=== PATIENT | female | born 1945 | race Caucasian/White ===

== ENCOUNTER 2017-01-31 11:53 | Emergency (ER) | payer MEDICARE, OTHER ==
[~2017-01-31] VITALS: Ht 160 cm; Wt 55.5 kg
[~2017-01-31 11:53] MED LIST: CALCIUM CARBON650 M2 PO; DUO-KAPS1 CAP PO; FISH OIL 1000MG1 CAP PO; OYSTER CALCIUM500 M1 PO; RITE AID ASPIRI81 M1 PO; ST. JOSEPH81 M2 PO; ZOCOR20 MG PO
[2017-01-31] MEDS ORDERED: SIMVASTATIN5 M1 PO (12:03)
[2017-01-31] MEDS ORDERED: GLUCOSAMINE1000 MG PO (12:04)
[2017-01-31 12:43] VITALS: BP 119/78
== END 2017-01-31 12:43 | disposition home or self-care (01) ==
LOC: ED 11:53
DX: S80.811A Abrasion, right lower leg, initial encounter (principal); X58.XXXA Exposure to other specified factors, initial encounter; Y92.009 Unspecified place in unspecified non-institutional (private) residence as the place of occurrence of the external cause; E78.5 Hyperlipidemia, unspecified

== ENCOUNTER → 2017-02-05 | Outpatient (CLI) | payer MEDICARE, OTHER ==
[2017-01-31 12:43] VITALS: BP 119/78
[~2017-02-05] MED LIST changes: +GLUCOSAMINE1000 MG PO; +SIMVASTATIN5 M1 PO
== END ==
LOC: LAB 09:58
DX: Z00.00 Encounter for general adult medical examination without abnormal findings (principal); Z13.1 Encounter for screening for diabetes mellitus; Z12.12 Encounter for screening for malignant neoplasm of rectum; E78.00 Pure hypercholesterolemia, unspecified; E03.9 Hypothyroidism, unspecified; M21.612 Bunion of left foot; M25.579 Pain in unspecified ankle and joints of unspecified foot

== ENCOUNTER → 2017-03-30 | Outpatient (CLI) | payer MEDICARE, OTHER | LOC: LAB 10:07 | DX: M79.641 Pain in right hand (principal); M79.672 Pain in left foot ==

== ENCOUNTER → 2017-04-23 | Outpatient (CLI) | payer MEDICARE, OTHER ==
[2017-04-23 13:32] LABS: URINE APPEARANCE HAZY; URINE COLOR YELLOW; URINE UROBILINOGEN 1 mg/dL (NORMAL)
== END ==
LOC: LAB 12:52
PROVIDERS: Family Medicine
DX: N39.0 Urinary tract infection, site not specified (principal)

== ENCOUNTER → 2017-05-14 | Outpatient (CLI) | payer MEDICARE, OTHER ==
[2017-05-14 08:28] LABS: PH-URINE 6.5 (5.0 - 8.0); URINE APPEARANCE CLOUDY; URINE BILIRUBIN NEGATIVE (NEGATIVE); URINE BLOOD 50 ery/uL (NEGATIVE); URINE COLOR YELLOW; URINE GLUCOSE NEGATIVE (NEGATIVE); URINE KETONE NEGATIVE (NEGATIVE); URINE LEUKOCYTE ESTERASE 2+ (NEGATIVE); URINE MUCUS PRESENT (NOT PRESENT); URINE NITRATE NEGATIVE (NEGATIVE); URINE PROTEIN(semi-quant) TRACE mg/dL (NEGATIVE); URINE UROBILINOGEN NORMAL (NORMAL); URINE WBC >50 /hpf (0-3)
== END ==
LOC: LAB 07:47
PROVIDERS: Family Medicine
DX: N30.00 Acute cystitis without hematuria (principal)

== ENCOUNTER → 2017-05-24 | Outpatient (CLI) | payer MEDICARE, OTHER ==
[2017-05-24 11:13] LABS: URINE APPEARANCE CLEAR; URINE BILIRUBIN NEGATIVE (NEGATIVE); URINE BLOOD NEGATIVE (NEGATIVE); URINE COLOR YELLOW; URINE GLUCOSE NEGATIVE (NEGATIVE); URINE KETONE NEGATIVE (NEGATIVE); URINE LEUKOCYTE ESTERASE NEGATIVE (NEGATIVE); URINE MUCUS PRESENT (NOT PRESENT); URINE NITRATE NEGATIVE (NEGATIVE); URINE PROTEIN(semi-quant) NEGATIVE (NEGATIVE); URINE UROBILINOGEN NORMAL (NORMAL); URINE WBC 0-1 /hpf (0-3)
== END ==
LOC: LAB 09:50
PROVIDERS: Family Medicine
DX: R30.0 Dysuria (principal)

== ENCOUNTER → 2017-06-18 | Outpatient (CLI) | payer MEDICARE, OTHER | LOC: CARDREHAB 07:06 → CARDLAB 12:04 | DX: E78.5 Hyperlipidemia, unspecified (principal) | CPT/HCPCS: A9500 ==

== ENCOUNTER → 2018-06-06 | Outpatient (CLI) | payer MEDICARE, OTHER ==
[2018-06-06 10:13] LABS: ALBUMIN 4.4 g/dL (3.5-5.0); CALCIUM 9.9 mg/dL (8.4-10.2); POTASSIUM 4.3 mmol/L (3.6-5.0); TOTAL BILIRUBIN 0.8 mg/dL (0.2-1.3); TOTAL PROTEIN 7.4 g/dL (6.3-8.2)
== END ==
LOC: LAB 08:17
PROVIDERS: Family Medicine
DX: Z13.1 Encounter for screening for diabetes mellitus (principal); E78.00 Pure hypercholesterolemia, unspecified

== ENCOUNTER → 2018-06-30 | Outpatient (CLI) | payer MEDICARE, OTHER | LOC: MAMMO 08:54 | DX: Z12.31 Encounter for screening mammogram for malignant neoplasm of breast (principal); Z00.00 Encounter for general adult medical examination without abnormal findings; M21.619 Bunion of unspecified foot; M06.9 Rheumatoid arthritis, unspecified; E78.00 Pure hypercholesterolemia, unspecified; M19.079 Primary osteoarthritis, unspecified ankle and foot; M81.8 Other osteoporosis without current pathological fracture ==

== ENCOUNTER → 2018-06-30 | Outpatient (CLI) | payer MEDICARE, OTHER | LOC: RAD 08:54 → MAMMO 10:00 → RAD 10:00 | DX: Z13.820 Encounter for screening for osteoporosis (principal); M81.0 Age-related osteoporosis without current pathological fracture; M85.852 Other specified disorders of bone density and structure, left thigh; M85.851 Other specified disorders of bone density and structure, right thigh ==

== ENCOUNTER → 2018-07-04 | Outpatient (CLI) | payer MEDICARE, OTHER | LOC: MAMMO 06:55 | DX: N63.11 Unspecified lump in the right breast, upper outer quadrant (principal) ==

== ENCOUNTER → 2019-05-29 | Outpatient (CLI) | payer MEDICARE, OTHER ==
[2019-05-29 08:35] LABS: HEMATOCRIT 40.2 % (37.0-47.0); HEMOGLOBIN 12.5 g/dL (12.5-16.0); MEAN PLATELET VOLUME 8.3 fl (7.4-10.4); RED BLOOD COUNT 4.49 M/mm3 (4.10-5.30); RED CELL DISTRIBUTION WIDTH 13.6 % (11.5-14.5); WHITE BLOOD COUNT 4.5 K/mm3 (4.8-10.8)
[2019-05-29 08:48] LABS: ALBUMIN 4.1 g/dL (3.4-4.8); POTASSIUM 4.4 mmol/L (3.5-5.1)
[2019-05-29 08:49] LABS: CALCIUM 9.7 mg/dL (8.3-10.5)
[2019-05-29 08:52] LABS: TOTAL BILIRUBIN 0.7 mg/dL (0.2-1.2)
== END ==
LOC: LAB 07:54
PROVIDERS: Family Medicine
DX: E78.00 Pure hypercholesterolemia, unspecified (principal); M81.8 Other osteoporosis without current pathological fracture; M06.9 Rheumatoid arthritis, unspecified

== ENCOUNTER → 2019-07-04 | Outpatient (CLI) | payer MEDICARE, OTHER | LOC: MAMMO 08:53 | DX: Z12.31 Encounter for screening mammogram for malignant neoplasm of breast (principal) ==

== ENCOUNTER → 2019-07-07 | Outpatient (CLI) | payer MEDICARE, OTHER ==
[2019-07-07 12:35] LABS: CLUE CELLS NOT OBSERVED (Not Observd)
== END ==
LOC: LAB 11:46
PROVIDERS: Family Medicine
DX: N76.0 Acute vaginitis (principal)
CPT/HCPCS: Q0111

== ENCOUNTER 2019-08-30 17:20 | Emergency (ER) | payer MEDICARE, OTHER ==
[~2019-08-30] VITALS: Ht 160 cm; Wt 56.7 kg
[2019-08-30] MEDS ORDERED: CEPHALEXIN500 M2 PO (18:43)
[2019-08-30 19:00] VITALS: BP 123/83
== END 2019-08-30 19:00 | disposition home or self-care (01) ==
LOC: ED 17:20
DX: S01.01XA Laceration without foreign body of scalp, initial encounter (principal); S01.511A Laceration without foreign body of lip, initial encounter; E78.5 Hyperlipidemia, unspecified; Z23 Encounter for immunization; Z85.3 Personal history of malignant neoplasm of breast; W22.09XA Striking against other stationary object, initial encounter; Y93.55 Activity, bike riding; Y92.009 Unspecified place in unspecified non-institutional (private) residence as the place of occurrence of the external cause
CPT/HCPCS: 90714

== ENCOUNTER → 2019-09-04 | Outpatient (CLI) | payer MEDICARE, OTHER ==
[~2019-09-04] VITALS: Ht 160 cm; Wt 56.7 kg
[~2019-09-04] MED LIST changes: +CEPHALEXIN500 M2 PO
[2019-09-04 12:45] VITALS: BP 132/68
== END ==
LOC: AMSURD 11:49
DX: Z48.02 Encounter for removal of sutures (principal)

== ENCOUNTER → 2020-05-31 | Outpatient (CLI) | payer MEDICARE, OTHER ==
[2019-09-04 12:45] VITALS: BP 132/68
== END ==
LOC: AMSURD 14:24
DX: R55 Syncope and collapse (principal)

== ENCOUNTER → 2020-07-04 | Outpatient (CLI) | payer MEDICARE, OTHER ==
[2019-09-04 12:45] VITALS: BP 132/68
[2020-07-04 09:36] LABS: EOS % 0.4 % (1.0-5.0); HEMATOCRIT 39.5 % (37.0-47.0); HEMOGLOBIN 12.5 g/dL (12.5-16.0); MEAN CELL VOLUME 86 fl (78-100); MEAN CORPUSCULAR HEMOGLOBIN 27 pg (27-31); MEAN CORPUSCULAR HGB CONC 32 g/dL (33-37); MEAN PLATELET VOLUME 8.8 fl (7.4-10.4); MONO # 0.6 (0.20-0.80); NEU # 3.4 (1.40-6.50); PLATELET COUNT 475 K/mm3 (130-400); RED BLOOD COUNT 4.61 M/mm3 (4.10-5.30); RED CELL DISTRIBUTION WIDTH 12.8 % (11.5-14.5); WHITE BLOOD COUNT 4.9 K/mm3 (4.8-10.8)
[2020-07-04 09:42] LABS: CALCIUM 9.2 mg/dL (8.3-10.5)
[2020-07-04 09:43] LABS: TOTAL PROTEIN 7.1 g/dL (6.2-8.1)
[2020-07-04 09:45] LABS: TOTAL BILIRUBIN 1.1 mg/dL (0.2-1.2)
== END ==
LOC: LAB 09:03 → RAD 09:03
PROVIDERS: Family Medicine
DX: Z13.6 Encounter for screening for cardiovascular disorders (principal); Z00.00 Encounter for general adult medical examination without abnormal findings; M81.0 Age-related osteoporosis without current pathological fracture

== ENCOUNTER → 2020-07-04 | Outpatient (CLI) | payer MEDICARE, OTHER ==
[2019-09-04 12:45] VITALS: BP 132/68
== END ==
LOC: MAMMO 09:02
DX: Z12.31 Encounter for screening mammogram for malignant neoplasm of breast (principal)

== ENCOUNTER → 2021-07-14 | Outpatient (CLI) | payer MEDICARE, OTHER ==
[2021-07-14 10:28] LABS: POTASSIUM 4.5 mmol/L (3.5-5.1)
[2021-07-14 10:29] LABS: ALBUMIN 4.2 g/dL (3.4-4.8)
[2021-07-14 10:30] LABS: CALCIUM 9.7 mg/dL (8.3-10.5)
[2021-07-14 10:31] LABS: TOTAL PROTEIN 7.4 g/dL (6.2-8.1)
[2021-07-14 10:33] LABS: TOTAL BILIRUBIN 0.9 mg/dL (0.2-1.2)
== END ==
LOC: LAB 09:59
PROVIDERS: Family Medicine
DX: E78.00 Pure hypercholesterolemia, unspecified (principal); E55.9 Vitamin D deficiency, unspecified

== ENCOUNTER → 2021-07-23 | Outpatient (CLI) | payer MEDICARE, OTHER | LOC: MAMMO 09:53 | DX: Z12.31 Encounter for screening mammogram for malignant neoplasm of breast (principal) ==

== ENCOUNTER → 2022-01-14 | Outpatient (CLI) | payer MEDICARE, OTHER ==
[2022-01-14 08:29] LABS: ALBUMIN 4.2 g/dL (3.4-4.8)
[2022-01-14 08:31] LABS: TOTAL PROTEIN 7.4 g/dL (6.2-8.1)
[2022-01-14 08:33] LABS: TOTAL BILIRUBIN 1.2 mg/dL (0.2-1.2)
[2022-01-14 08:37] LABS: DIRECT BILIRUBIN 0.4 mg/dL (0.0-0.5)
== END ==
LOC: LAB 07:57
PROVIDERS: Family Medicine
DX: E78.00 Pure hypercholesterolemia, unspecified (principal)

== ENCOUNTER → 2023-08-04 | Outpatient (CLI) | payer MEDICARE, OTHER | LOC: RAD 11:00 → MAMMO 11:00 | DX: M81.0 Age-related osteoporosis without current pathological fracture (principal) ==

== ENCOUNTER 2024-02-08 04:27 | Emergency (ER) | payer MEDICARE, OTHER ==
[~2024-02-08] VITALS: Wt 56.7 kg
[2024-02-08 04:30] VITALS: BP 125/83
[2024-02-08] MEDS ORDERED: fentaNYL 100 MCG/2 ML VIAL IM ONE (05:00)
[2024-02-08] MEDS ORDERED: Morphine 4 MG/ML VIAL IV ONE (05:30)
[2024-02-08] MEDS ORDERED: fentaNYL 100 MCG/2 ML VIAL IV ONE ×2 (05:55→06:30)
== END 2024-02-08 07:48 | disposition home or self-care (01) ==
LOC: ED 04:27
DX: S43.004A Unspecified dislocation of right shoulder joint, initial encounter (principal); S00.31XA Abrasion of nose, initial encounter; W01.198A Fall on same level from slipping, tripping and stumbling with subsequent striking against other object, initial encounter
CPT/HCPCS: J2270; J3010; J3360

== ENCOUNTER → 2024-03-03 | Outpatient (CLI) | payer MEDICARE, OTHER | LOC: RAD 12:53 | DX: S46.011A Strain of muscle(s) and tendon(s) of the rotator cuff of right shoulder, initial encounter (principal); M19.011 Primary osteoarthritis, right shoulder; X58.XXXA Exposure to other specified factors, initial encounter ==

== ENCOUNTER → 2024-07-06 | Outpatient (CLI) | payer MEDICARE, OTHER ==
[2024-07-06 11:56] LABS: CALCIUM 10.2 mg/dL (8.3-10.5)
[2024-07-07 00:15] LABS: CREATININE OTHER SOURCE 76 mg/dL (63-166)
== END ==
LOC: LAB 11:13
PROVIDERS: Family Medicine
DX: E78.2 Mixed hyperlipidemia (principal); N18.31 Chronic kidney disease, stage 3a